=== PATIENT | male | born 1990 | race Caucasian/White ===

== ENCOUNTER 2025-05-03 09:09 | Emergency (ER) | payer OTHER, SELFPAY ==
--- NOTE | 2025-05-03 | XR_ITS ---
Examination: MRI lumbar spine without contrast Date and time: May 03, 2025, 1459 hours INDICATIONS: Low back pain left foot numbness urinary incontinence acute low back pain beginning May 2024 Technique: Multiple MRI axial and sagittal sections lumbar spine. Sagittal T2-weighted images, TR 3500, TE 118 T1 weighted transverse sections, TR 688 T8.5, T2-weighted sagittal sections T1 weighted sagittal sections TR 621, TE 30 T2 axial sections, TR 4, 190, TE 84. Findings: Adequate alignment lumbar vertebral bodies on the lateral view No lumbar fracture Disc desiccation of the lower 2 lumbar levels L5-S1 large, 13 mm extruded left paracentral disc, severely indenting the thecal sac, displacing the left S1 nerve root L4-L5 4 mm central lumbar disc bulge with annular central lumbar disc tear More cephalad levels unremarkable IMPRESSION: L5-S1 large, 13 mm, extruded left paracentral disc displacing the left S1 nerve root L4-L5 4 mm central lumbar disc bulge
[2025-05-03 09:35] VITALS: BP 162/94; PULSE 77; RESP 18; TEMP 36.4; O2SAT 98
--- NOTE | 2025-05-03 09:49 | PD.EDRME ---
Rapid Medical Screening Exam RME Arrival date/time: 05/03/25 09:09 34-year-old male with no known medical history presents to the emergency room with a chief complaint of lumbar back pain and urinary incontinence I have greeted and performed a focused initial assessment of this patient. A comprehensive ED assessment and evaluation of the patient, analysis of all test results, and completion of the medical decision making process will be conducted by additional ED providers. Chief Complaint: Back Pain/Injury Time Seen by Provider: 05/03/25 09:34 Vital signs: Vital Signs Temperature 97.6 F 05/03/25 09:35 Pulse Rate 77 05/03/25 09:35 Respiratory Rate 18 05/03/25 09:35 Blood Pressure 162/94 H 05/03/25 09:35 Pulse Oximetry (%) 98 05/03/25 09:35 Vital signs reviewed by provider: Yes
[2025-05-03] MEDS: KETOROLAC INJ 60 MG/2 ML VIAL 30 MG IM (10:00)
[2025-05-03 10:08] LABS: Basophils # (Auto) 0.1 Thou/mm3 (0.0-0.2); Basophils % (Auto) 1 % (0-2.5); Eosinophils # (Auto) 0.2 Thou/mm3 (0.0-0.5); Eosinophils % (Auto) 2 % (0-10); Hematocrit 39.1 % (41.0-53.0); Hemoglobin 13.8 g/dL (13.5-16.0); Immature Granulocytes Auto 0.03 Thou/mm3 (0.00-0.00); Lymphocytes # (Auto) 2.5 Thou/mm3 (1.0-4.8); Lymphocytes % (Auto) 34 % (10-50); Mean Corpuscular HGB Conc 35.3 g/dl (31.0-37.0); Mean Corpuscular Hemoglobin 30.4 pg (25.0-35.0); Mean Corpuscular Volume 86 fL (80-100); Monocytes # (Auto) 0.5 Thou/mm3 (0.0-0.8); Monocytes % (Auto) 6 % (0-12); Neutrophils # (Auto) 4.2 Thou/mm3 (1.8-7.7); Neutrophils % (Auto) 56 % (37-80); Nucleated Red Blood Cell # 0.00 Thou/mm3 (0.00-0.00); Nucleated Red Blood Cell % 0 /100 WBC (0); Platelet Count 265 Thou/mm3 (140-440); RDW Standard Deviation 37.7 fL (35.1-43.9); Red Blood Count 4.54 Miln/mm3 (4.50-5.90); White Blood Count 7.4 Thou/mm3 (3.8-10.6)
[2025-05-03 10:19] VITALS: BP 147/90; PULSE 61; RESP 16; TEMP 36.5; O2SAT 96
[2025-05-03 10:31] LABS: Alanine Aminotransferase 84 U/L (10-49); Albumin, Serum 5.0 gm/dL (3.5-5.0); Albumin/Globulin Ratio 2.3 (1.2-2.2); Alkaline Phosphatase 68 U/L (46-116); Anion Gap 12 (7-16); Aspartate Amino Transferase 48 U/L (0-34); BUN/Creatinine Ratio 13 Ratio (12-20); Bilirubin,Total 0.6 mg/dL (0.3-1.2); Blood Urea Nitrogen 13 mg/dL (9-23); Calcium 9.6 mg/dL (8.3-10.6); Calcium (Corrected) 9.6 mg/dL (8.5-10.1); Carbon Dioxide 24.4 mMol/L (20.0-31.0); Chloride 109 mMol/L (98-107); Creatinine (Component) 1.0 mg/dL (0.6-1.3); Globulin 2.2 gm/dL (2.3-3.5); Glucose 95 mg/dL (74-106); Osmolality,Calculated 288 (275-295); Potassium 4.3 mMol/L (3.4-5.1); Sodium 145 mMol/L (136-145); Total Protein 7.2 gm/dL (5.7-8.2); eGFR > 60 See Note
[2025-05-03 10:40] LABS: INR 1.0 (0.9-1.3); Partial Thromboplastin Time 32.2 Seconds (22.0-36.0); Prothrombin Time 10.3 Seconds (9.0-12.2)
--- NOTE | 2025-05-03 11:08 | EDNOTE_ITS ---
<Statement entered by Sridevi Crews MD - 05/04/25 16:02> As co-signing physician, I was present and available for consult prn. I concur with the plan and care as documented by the midlevel provider. ED General RME/HPI General Chief complaint: Back Pain/Injury Stated complaint: BACK PAIN; URINARY INCONTINENCE Time Seen by Provider: 05/03/25 09:34 Arrival date/time: 05/03/25 09:09 CC: Low back pain, urinary incontinence, numbness in the left foot HPI ongoing for 1 year with progressive increase in severity, patient now has persistent left sciatic nerve pain, numbness in the foot, what is new is 2 episodes of urinary incontinence in the past 3 days. Patient denies fecal incontinence, sciatic pain at an 8, low back pain at a 2. Denies fever or falls repetitive motion blunt trauma. Back pain is acute on chronic has been ongoing for 1 year. Patient is being followed up by pain specialist. MRI done in June 2024 shows a slipped disc . RME / HPI RME / HPI narrative: 05/03/25 09:09 34-year-old male with no known medical history presents to the emergency room with a chief complaint of lumbar back pain and urinary incontinence I have greeted and performed a focused initial assessment of this patient. A comprehensive ED assessment and evaluation of the patient, analysis of all test results, and completion of the medical decision making process will be conducted by additional ED providers. Related Data Previous Rx's ?Medication ?Instructions ?Recorded cyclobenzaprine 10 mg tablet 10 mg PO TID #30 tabs hydrocodone 5 mg-acetaminophen 325 1 tab PO Q6H PRN pa in #30 tabs 18 mg tablet ([place]) ibuprofen 800 mg tablet 800 mg PO TID #30 tabs 11/25 Allergies Allergy/AdvReac Type Severity Reaction Status Date / Time No Known Allergies Allergy Verified 05/03/25 09:15 Review of Systems Review of Systems Narrative Review of Systems: GEN: No fever, no chills, no weight loss EYES: No discharge, no visual changes, no pain HEENT: No ear pain, no congestion, no sore throat PULM: No shortness of breath, no cough, no congestion CV: No chest pain, no dyspnea on exertion, no palpitations GI: No nausea, no vomiting, no diarrhea, no pain, no constipation : No frequency, no urgency, no dysuria MUSC/SKEL: No joint pain, + back pain SKIN: No rash PSYCH: No hallucinations, no depression HEME/LYMPH: No easy bleeding or bruising tendencies NEURO: No weakness, no headache Past Medical History Past Medical History CARDIAC: Negative Congestive Heart Failure RESPIRATORY: Negative Respiratory Disorders or Chronic Obstructive Pulmonary Disease (COPD) GENITOURINARY: Negative Renal Disease ENDOCRINE: Negative Diabetes Mellitus Type 1 or Diabetes Mellitus Type 2 Social History SMOKING STATUS: Never smoker ED Exam Narrative Physical exam: [General: In mild discomfort at rest but not in any acute distress Head normocephalic HEENT: Eyes pupils are PERRLA EOMs are intact all other subsystems of HEENT are within acceptable limits Neck is supple nontender Chest equal chest rise nontender to palpation Respiratory: Clear to auscultation no wheezes crackles or rubs CV: Rate rhythm is regular no murmurs rubs or clicks Abdomen is soft nontender no masses positive bowel sounds all 4 quadrants Back: No CVA tenderness no spinous process tenderness from cervical spine thoracic and lumbar spine Skin: Intact no petechiae rash induration ulceration or crepitus Extremities: Moving all extremity against resistance cap refill less than 2 seconds neurosensory intact. While in a supine position able to freely move both lower extremities strength is 4 over 5-5/5. Cap refill is less than 2 seconds neurosensory intact. Neuro: Awake alert oriented x3 Glascow coma 15 no focal deficits] Course Course Course Narrative: MRI of the spine shows no cauda equina syndrome no epidural abscess, there is a displacement of the left S1 nerve root. During admission the emergency room at no time is the patient had any urinary incontinence, the patient is freely moving his legs in the bed without complication there is been no request for pain medicines and the patient has been in this ER for approximately 7 hours. This time comfortable discharging the patient home after consulting with Dr. CREWS. The patient to follow-up with a drug and alcohol treatment specialist and pain management. He is advised if there is worsening of symptoms return the emergency room immediately for further evaluation. For copy of his records he is to go to the medical records and request a copy including a disk of the imaging. Quality Measures none Orders Category Date Time Status MRI Screening NOW Care 05/03/25 09:48 Active MRI Screening NOW Care 05/03/25 11:07 Completed MR lumbar spine wo con Stat Exams 05/03/25 Completed CBC Stat Lab 05/03/25 09:59 Completed CMP [Comprehensive Metabolic Panel] Stat Lab 05/03/25 09:59 Completed PT [Prothrombin Time with INR] Stat Lab 05/03/25 09:59 Completed PTT [Partial Thromboplastin Time] Stat Lab 05/03/25 09:59 Completed Ketorolac Inj [Toradol Inj] Med 05/03/25 09:48 Discontinued 30 mg IM X1 ONE Vital Signs Vital signs: Vital Signs Temperature 97.6 F 05/03/25 09:35 Pulse Rate 77 05/03/25 09:35 Respiratory Rate 18 05/03/25 09:35 Blood Pressure 162/94 H 05/03/25 09:35 Pulse Oximetry (%) 98 05/03/25 09:35 Discharge Plan Plan Patient Disposition: HOME (Self Care) Patient condition on transfer: Stable Prescriptions/Referrals Prescriptions/Med Rec: No Action cyclobenzaprine 10 mg tablet 10 mg PO TID Qty: 30 0RF ibuprofen 800 mg tablet 800 mg PO TID Qty: 30 0RF hydrocodone-acetaminophen [[place]] 5-325 mg tablet 1 tab PO Q6H MDD 4 PRN (Reason: pain) Qty: 30 0RF Referrals: No Primary/Family,Physician [Primary Care Provider] - In 1 week Problem List Clinical Impression: Lumbar radiculopathy Patient/Caregiver Discharge Instructions Education Materials: ED Back Pain (Acute or Chronic) Additional Instructions: Follow-up with the doctors a drug and alcohol treatment specialist and pain management for further evaluation if there is worsening of symptoms feel free to return to the emergency room for reevaluation. Print Language: Spanish Stand Alone Forms: Elena Award Info., Work/School Release, Patient Portal Info Letter PA/CORPORATE DEVELOPMENT MANAGER Supervising Physician PA/CORPORATE DEVELOPMENT MANAGER Supervising Physician: Titus Clemons [facility]NP [facility] Clinical Information Provided by: patient Medical Records reviewed [facility] Meds/Rx considered, not ordered None Labs/Rad/Tests considered, not ordered None Chronic Illness/Social Conditions Explain: Chronic back pain Medication Administration(s) Medication Administration History Discontinued Medications Ketorolac Tromethamine (Ketorolac Inj 60 Mg/2 Ml Vial) 30 mg IM X1 ONE Stop: 05/03/25 09:49 Last Admin: 05/03/25 10:00 Dose: 30 mg Documented By: [email or web address]
[2025-05-03 14:10] VITALS: BP 130/80; PULSE 58; RESP 16; TEMP 37.1; O2SAT 96
[2025-05-03 16:07] VITALS: BP 141/91; PULSE 68; RESP 16; TEMP 36.7; O2SAT 98
[2025-05-03 16:45] VITALS: BP 138/89; PULSE 78; RESP 16; TEMP 36.8; O2SAT 97
== END 2025-05-03 16:38 | disposition home or self-care (01) ==
PROVIDERS: Nurse Practitioner Family; Emergency Provider Emergency Medicine
DX: M54.16 Radiculopathy, lumbar region (principal); M53.3 Sacrococcygeal disorders, not elsewhere classified
CPT/HCPCS: 36415; 72148; 80053; 85025; 85610; 85730; 96372; 99284; J1885